=== PATIENT | male | born 1955 | race Caucasian/White ===

== ENCOUNTER 2024-01-30 19:46 | Emergency (ER) | payer BC ==
[2024-01-30] MEDS ORDERED: Sodium Chloride 0.9% 10 ML Syringe FLUSH PRN (19:57)
[2024-01-30] MEDS: Ondansetron 4 MG/2 ML SDV IVPUSH ONE (20:06)
[2024-01-30] MEDS: Morphine 4 MG/ML Syringe IVPUSH ONE (20:08)
[2024-01-30 20:11] LABS: BASOPHILS PERCENT AUTO 0.2 % (0.2-1.2); EOSINOPHILS PERCENT AUTO 0.3 % (0.0-4.0); HEMATOCRIT 50.6 % (40.0-52.0); HEMOGLOBIN 17.1 g/dL (14.0-18.0); IMMATURE GRAN ABSOLUTE AUTO 0.07 x10^3/uL (0.00-0.07); LYMPHOCYTES ABSOLUTE AUTO 1.8 x10^3/uL (1.0-4.8); LYMPHOCYTES PERCENT AUTO 11.8 % (25.0-50.0); MEAN CORPUSCULAR HEMOGLOBIN 29.7 pg (26.0-32.0); MEAN CORPUSCULAR HGB CONC 33.8 g/dL (32.0-36.0); MONOCYTES ABSOLUTE AUTO 1.1 x10^3/uL (0.0-0.8); NEUTROPHILS ABSOLUTE AUTO 12.3 x10^3/uL (1.8-7.7); NEUTROPHILS PERCENT AUTO 80.2 % (50.0-80.0); PLATELET COUNT,PLT 266 x10^3/uL (130-400); RED BLOOD CELL COUNT 5.75 x10^6/uL (4.5-6.0); WHITE BLOOD CELL COUNT,WBC 15.3 x10^3/uL (4.0-10.0)
[2024-01-30] MEDS: HYDROmorphone 1 MG/ML Syringe IVPUSH ONE ×4 (20:27→23:50)
[2024-01-30 20:29] LABS: ALANINE AMINOTRANSFERASE,ALT 25 U/L (16-63); ALBUMIN 2.5 g/dL (3.4-5.0); ALKALINE PHOSPHATASE 110 U/L (46-116); ANION GAP 14.3 mmol/L (5-15); ASPARTATE AMNIOTRANSFERASE,AST 23 U/L (15-37); BILIRUBIN TOTAL 0.5 mg/dL (0.2-1.0); BLOOD UREA NITROGEN,BUN 17 mg/dL (7-18); C-REACTIVE PROTEIN 8.48 mg/dL (<=0.50); CALCIUM 9.3 mg/dL (8.5-10.1); CARBON DIOXIDE,CO2 24 mmol/L (21-32); CHLORIDE,CL 97 mmol/L (98-107); ESTIMATED GFR 83 mL/min (>=60); GLUCOSE RANDOM 115 mg/dL (70-99); LIPASE 44 U/L (19-71); POTASSIUM,K 4.3 mmol/L (3.5-5.1); PROTEIN TOTAL,TP 7.5 g/dL (6.4-8.2); SODIUM,NA 131 mmol/L (136-145)
[2024-01-30] MEDS: Lactated Ringers 1,000 ML IV ONE ×2 (20:40→22:29)
[2024-01-30] MEDS: Iopamidol 755 Mg/ML 100 ML Bottle IVPUSH ONE (21:31)
[2024-01-30] MEDS: Piperacillin/Tazobactam 4.5 GM in Sodium Chloride 0.9% 100 ML IV ONE (22:29)
[2024-01-31] MEDS: Heparin Sodium 5,000 Units/ML Vial IVPUSH ONE (00:06)
[2024-01-31] MEDS: Heparin Sodium/0.45% NaCl 25,000 UNITS/500 ML BAG IV STA (00:16)
[2024-01-31] MEDS: Sodium Chloride 0.9% 100 ML ONE (01:45)
== END 2024-01-31 00:40 | disposition short-term general hospital (02) ==
LOC: VM.ED 19:46
DX: K37 Unspecified appendicitis (principal); K55.069 Acute infarction of intestine, part and extent unspecified; I10 Essential (primary) hypertension; E78.00 Pure hypercholesterolemia, unspecified; J44.9 Chronic obstructive pulmonary disease, unspecified; K21.9 Gastro-esophageal reflux disease without esophagitis; E11.40 Type 2 diabetes mellitus with diabetic neuropathy, unspecified; Z79.82 Long term (current) use of aspirin; Z79.899 Other long term (current) drug therapy; Z88.2 Allergy status to sulfonamides; Z79.4 Long term (current) use of insulin
CPT/HCPCS: 36415; 74174; 80053; 83605; 83690; 85025; 86140; 94760; 96361; 96365; 96375; 96376; 99284; 99285-25; J1171; J1644; J2270; J2405; J2543; J3490; J7120; Q9967